=== PATIENT | male | born 1990 | race Caucasian/White ===

== ENCOUNTER 2017-01-26 14:18 | Emergency (ER) | payer OTHER ==
--- NOTE | ~2017-01-26 | CR21 ---
[facility] A Service [facility] RADIOLOGY TEXT RESULTS PATIENT: ZOHREH KRISHNAMURTHY LOCATION: SED : 91 UNIT #: [id number] AGE: [address]: KATIE FREDERICK PA-C SEX: M ORDER DR: [id number] [place] [id number] E MR#: [id number] Acc #: [id number] NAME: ZOHREH KRISHNAMURTHY : 1990 SEX: M STUDY DATE/TIME: 01/26/2017 14:33 UNIT: SED ROOM: STUDY DESCRIPTION: CR Ankle Min 3 Views Rt Attending Physician: Katie Frederick Pa-C Ordering Physician: Staff Doctor Not On Primary Care Physician: No Primary Care Physician MEDICAL IMAGING REPORT This report is preliminary unless electronic signature is present. EXAM Right ankle. DATE OF EXAM 01/26/2017 HISTORY 26-year-old male with right ankle and leg pain, status post fall down stairs today. COMPARISON Right leg, same date. FINDINGS 3 views of the right ankle demonstrate a mildly displaced spiral oblique fracture of the distal tibial shaft. The ankle remains intact and normally located. Ankle mortise is symmetric. Talar dome intact. No ankle effusion. Mild soft tissue swelling of the lower leg. IMPRESSION Minimally-displaced spiral oblique fracture of the distal tibial shaft. Right ankle remains intact and normally located. Dictated by... Alex Suarez M.D. THIS IS AN ELECTRONICALLY VERIFIED REPORT Alex Suarez M.D. at 01/27/2017 4:55 PM MISBAH/arsh TD: 01/26/2017 17:23 [facility] A Service [facility] RADIOLOGY TEXT RESULTS PATIENT: ZOHREH KRISHNAMURTHY LOCATION: SED : 91 UNIT #: [id number] AGE: [address]: KATIE FREDERICK PA-C SEX: M ORDER DR: [place] #: [id number] MEDICAL IMAGING REPORT
--- NOTE | ~2017-01-26 | CR253 ---
[facility] A Service of [facility] RADIOLOGY TEXT RESULTS PATIENT: ZOHREH KRISHNAMURTHY LOCATION: SED : 91 UNIT #: [id number] AGE: [address]: KATIE FREDERICK PA-C SEX: M ORDER DR: [id number] [address] [address] [id number] E MR#: [id number] Acc #: [id number] NAME: ZOHREH KRISHNAMURTHY : 1990 SEX: M STUDY DATE/TIME: 01/26/2017 14:33 UNIT: SED ROOM: STUDY DESCRIPTION: CR Tibia and Fibula 2 Views Rt Attending Physician: Katie Frederick Pa-C Ordering Physician: Staff Doctor Not On Primary Care Physician: No Primary Care Physician MEDICAL IMAGING REPORT This report is preliminary unless electronic signature is present. EXAM Right leg 01/26/2017 HISTORY 26-year-old male with right leg pain status post fall down stairs today. COMPARISON Right ankle same date. FINDINGS 2 views of the right leg demonstrate a minimally-displaced spiral oblique fracture of the distal shaft of the right tibia. The visualized fibula remains intact. Mild soft tissue swelling around the lower leg. IMPRESSION Minimally-displaced spiral oblique fracture of the distal tibial shaft. Dictated by... Alex Suarez M.D. THIS IS AN ELECTRONICALLY VERIFIED REPORT Alex Suarez M.D. at 01/27/2017 4:55 PM MISBAH/dai TD: 01/26/2017 17:17 JOB #: [id number] MEDICAL IMAGING REPORT
[~2017-01-26 14:18] MED LIST: ANUSOL-HC SUPP25 M1 PR; COLACE PO; NO MEDICATIONS; PEN-VEE K PO; PERCOCET5/325 PO
[2017-03-21] MEDS ORDERED: NO MEDICATIONS (10:23)
== END 2017-01-26 16:21 | disposition home or self-care (01) ==
LOC: SED 14:18
DX: S82.301A Unspecified fracture of lower end of right tibia, initial encounter for closed fracture (principal); F17.210 Nicotine dependence, cigarettes, uncomplicated; X50.1XXA Overexertion from prolonged static or awkward postures, initial encounter; Y93.89 Activity, other specified; Y92.69 Other specified industrial and construction area as the place of occurrence of the external cause; Y99.0 Civilian activity done for income or pay
CPT/HCPCS: 29515; 73590; 73610; 99284

== ENCOUNTER 2017-03-21 10:39 | Emergency (ER) | payer OTHER ==
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
== END 2017-03-21 11:57 | disposition home or self-care (01) ==
LOC: SED 10:39
DX: S82.301A Unspecified fracture of lower end of right tibia, initial encounter for closed fracture (principal); Y09 Assault by unspecified means; Y92.149 Unspecified place in prison as the place of occurrence of the external cause
CPT/HCPCS: 29515; 73610; 99283

== ENCOUNTER 2017-07-04 23:49 | Emergency (ER) | payer OTHER ==
[~2017-07-04] VITALS: Ht 182.9 cm; Wt 88.5 kg
--- NOTE | ~2017-07-04 | CR253 ---
[facility] A Service of [facility] RADIOLOGY TEXT RESULTS PATIENT: ZOHREH KRISHNAMURTHY LOCATION: SED : 91 UNIT #: [id number] AGE: [address]: Yovani Ndiaye MD SEX: M ORDER DR: [id number] [place] [address] [id number] E MR#: [id number] Acc #: [id number] NAME: ZOHREH KRISHNAMURTHY : 1990 SEX: M STUDY DATE/TIME: 07/05/2017 0:57 UNIT: SED ROOM: STUDY DESCRIPTION: CR Tibia and Fibula 2 Views Rt Attending Physician: Yovani Ndiaye M.D. Ordering Physician: Yovani Ndiaye M.D. Primary Care Physician: No Primary Care Physician MEDICAL IMAGING REPORT This report is preliminary unless electronic signature is present. EXAM Right tibia-fibula series, 07/05/2017. HISTORY 26-year-old male in the ED with right lower leg pain after injury. Fell on stairs today, twisting leg. Right distal tibial fracture earlier this year. TECHNIQUE AP and lateral radiographs of the right tibia and fibula. COMPARISON Right tibia-fibula series, 01/26/2017. FINDINGS The examination shows old healed fracture deformity of the distal tibial shaft with surrounding callus formation. This was acute on the previous study. Today, no acute osseous abnormality is demonstrated involving the tibia or fibula. IMPRESSION 1. No acute osseous abnormality. 2. Old healed fracture deformity of the right distal tibia as noted. Dictated by... Anthony Becerra M.D. THIS IS AN ELECTRONICALLY VERIFIED REPORT Anthony Becerra M.D. at 07/05/2017 10:03 PM RGW/tmw [facility] A Service of [facility] RADIOLOGY TEXT RESULTS PATIENT: ZOHREH KRISHNAMURTHY LOCATION: SED : 91 UNIT #: [id number] AGE: [address]: Yovani Ndiaye MD SEX: M ORDER DR: TD: 07/05/2017 10:35 JOB #: [id number] MEDICAL IMAGING REPORT Page 1 of 1
== END 2017-07-05 02:02 | disposition home or self-care (01) ==
LOC: SED 23:49
DX: S93.401A Sprain of unspecified ligament of right ankle, initial encounter (principal); T40.1X1A Poisoning by heroin, accidental (unintentional), initial encounter; X58.XXXA Exposure to other specified factors, initial encounter; F17.200 Nicotine dependence, unspecified, uncomplicated
CPT/HCPCS: 29540; 73590; 99284